=== PATIENT | female | born 1980 | race Caucasian/White ===

== ENCOUNTER 2025-06-23 11:15 | Outpatient (RCR) | payer MEDICAID, SELFPAY | END 2025-06-27 23:59 | disposition home or self-care (01) | LOC: MPT 11:15 | PROVIDERS: Visit Provider Family Medicine | DX: G89.4 Chronic pain syndrome (principal) | CPT/HCPCS: 97110; 97162; G0283 ==

== ENCOUNTER 2025-07-12 11:56 | Outpatient (RCR) | payer MEDICAID, SELFPAY | END 2025-07-28 23:59 | disposition home or self-care (01) | LOC: MPT 11:56 | PROVIDERS: Visit Provider Family Medicine | DX: G89.4 Chronic pain syndrome (principal) | CPT/HCPCS: 97110; 97112; 97530; G0283 ==